=== PATIENT | male | born 1950 | race Caucasian/White ===

== ENCOUNTER 2021-07-10 09:30 | Emergency (ER) | payer OTHER, BC ==
[2021-07-10 09:38] VITALS: BP 153/71; PULSE 69; TEMP 97; BMI 25.5
[2021-07-10] MEDS ORDERED: KETOROLAC TROMETHAMINE 30 MG/1 ML VIAL IVPUSH ONE (10:32)
[2021-07-10] MEDS ORDERED: SODIUM CHLORIDE 1,000 ML IV STA (10:32)
[2021-07-10] MEDS ORDERED: KETOROLAC TROMETHAMINE 15 MG/ML VIAL ONE (10:50)
[2021-07-10 11:19] LABS: EPI CELLS 2 /uL (0-25.1); HYALINE CASTS 0 /uL (0-3.1); URINE APPEARANCE CLEAR; URINE BACTERIA 8 /uL (0-1359); URINE BILIRUBIN NEGATIVE (NEGATIVE); URINE COLOR YELLOW; URINE GLUCOSE (UA) NEGATIVE (NEGATIVE); URINE KETONE NEGATIVE (NEGATIVE); URINE LEUK ESTERASE TRACE (NEGATIVE); URINE NITRITE NEGATIVE (NEGATIVE); URINE PROTEIN NEGATIVE (NEGATIVE); URINE RBC 21 /uL (0-23.9); URINE WBC 8 /uL (0-25.8)
[2021-07-10 11:23] LABS: BASO % 0.8 % (0-2.0); HEMATOCRIT 41.2 % (35.4-49); HEMOGLOBIN 14.2 GM/dL (11.7-16.9); LYMPH % 25.7 % (8-40); MCH 30.1 pg (25.7-33.7); MCHC 34.3 g/dl (32.0-35.9); MEAN CELL VOLUME 87.6 fl (80-96); MEAN PLT VOLUME 10.5 fl (7.5-11.1); MONO % 13.3 % (3.8-10.2); NEUT % 59.2 % (42.8-82.8); PLATELET COUNT 131 10^3/uL (134-434); RBC 4.71 M/mm3 (4.00-5.60); RDW 14.1 % (11.9-15.9); WHITE BLOOD COUNT 5.2 K/mm3 (4.0-10.0)
[2021-07-10 11:47] LABS: CALCIUM 8.8 mg/dL (8.5-10.1)
[2021-07-10 11:48] LABS: BLOOD UREA NITROGEN 24.7 mg/dL (7-18)
[2021-07-10 11:51] LABS: CREATININE 0.9 mg/dL (0.55-1.3)
[2021-07-10 11:52] LABS: BILIRUBIN,TOTAL 0.7 mg/dL (0.2-1)
[2021-07-10 11:53] LABS: TOT PROT 8.1 g/dl (6.4-8.2)
== END 2021-07-10 12:53 | disposition home or self-care (01) ==
LOC: JER 09:30
PROC: 3E033GC Introduction of Other Therapeutic Substance into Peripheral Vein, Percutaneous Approach (ICD-10-PCS; principal; 2021-07-10)
DX: R10.9 Unspecified abdominal pain (principal)
CPT/HCPCS: 36415; 74176-TC; 80053; 81003; 85025; 87086; 99285-25